=== PATIENT | female | born 1975 ===

== ENCOUNTER 2018-07-04 13:22 | Emergency (ER) | payer OTHER ==
[~2018-07-04] VITALS: Ht 180.3 cm; Wt 92.5 kg
[~2018-07-04 13:22] MED LIST: LEVAQUIN750 MG PO
[2018-07-04] MEDS ORDERED: SYNTHROID137 MCG (13:40)
[2018-07-04] MEDS ORDERED: FLONASE16 GM (13:40)
[2018-07-04] MEDS ORDERED: VYVANSE50 MG (13:41)
[2018-07-04] MEDS ORDERED: COLD & FLU FIG1 EACH (13:41)
== END 2018-07-04 18:16 | disposition home or self-care (01) ==
LOC: ER 13:22
DX: B34.9 Viral infection, unspecified (principal); J31.2 Chronic pharyngitis

== ENCOUNTER 2020-10-28 12:51 | Outpatient (CLI) | payer OTHER ==
[~2020-10-28 12:51] MED LIST changes: +COLD & FLU FIG1 EACH; +FLONASE16 GM; +SYNTHROID137 MCG; +VYVANSE50 MG
== END 2020-10-28 13:10 | disposition home or self-care (01) ==
LOC: MAMO-SONO 12:51
DX: E03.8 Other specified hypothyroidism (principal); C73 Malignant neoplasm of thyroid gland; N60.21 Fibroadenosis of right breast; N60.22 Fibroadenosis of left breast; Z12.31 Encounter for screening mammogram for malignant neoplasm of breast